=== PATIENT | female | born 1945 | race Caucasian/White ===

== ENCOUNTER 2018-12-05 12:03 | Outpatient (CLI) | payer BC | END 2018-12-05 12:04 | disposition home or self-care (01) | LOC: BICMAMMO 12:03 | PROVIDERS: ATTEND Family Medicine | DX: Z12.31 Encounter for screening mammogram for malignant neoplasm of breast (principal) | CPT/HCPCS: 77063; 77067 ==

== ENCOUNTER 2019-03-22 11:18 | Outpatient (CLI) | payer BC ==
--- NOTE | 2019-03-22 13:45 | RAD ---
RIGHT HIP 2 VIEWS: Date: 03/22/19 HISTORY: Right hip pain. FINDINGS/IMPRESSION: No fracture, dislocation, or bony destruction is identified. POS: [facility]
== END 2019-03-22 11:19 | disposition home or self-care (01) ==
LOC: BICRAD 11:18
PROVIDERS: ATTEND Family Medicine
DX: M25.551 Pain in right hip (principal)
CPT/HCPCS: 88184

== ENCOUNTER 2019-06-12 15:26 | Outpatient (CLI) | payer BC ==
--- NOTE | 2019-06-12 18:32 | MRI ---
PELVIS MRI WITH AND WITHOUT IV CONTRAST: 06/12/19 HISTORY: Right gluteal and right hip pain. FINDINGS: No evidence for abnormal marrow signal involving the hips to suggest avascular necrosis, fracture, or acute stress injury. There is some abnormal linear increased signal at the insertion of the common h amstring tendon evidence for an undersurface and interstitial or delaminating incomplete right common hamstring tendon tear. Left common hamstring tendinopathy. Mild increased signal associated with the right gluteus medius and gluteus minimus tendon insertion regions without evidence for a full thickn ess tear. Abnormal signal associated with the anterior labrum, evidence for a degenerative type blanquita l tear. IMPRESSION: Gluteus minimus and gluteus medius insertional tendinopathy without evidence for an associated comple te or full thickness tear. Undersurface and interstitial and delaminating tear of the right common sung mstring tendon insertion region without full thickness or retracted component. Evidence for degenerat porter type anterior labral tear with some probable small paralabral cysts. No evidence for abnormal marrow signal to suggest avascular necrosis, fracture, or acute stress injur y of either hip or pelvis. POS: OFF
== END 2019-06-12 15:27 | disposition home or self-care (01) ==
LOC: SCSMRI 15:26
PROVIDERS: ATTEND Family Medicine
DX: M25.551 Pain in right hip (principal); M67.959 Unspecified disorder of synovium and tendon, unspecified thigh; S76.011A Strain of muscle, fascia and tendon of right hip, initial encounter

== ENCOUNTER 2019-07-12 12:54 | Outpatient (CLI) | payer BC ==
--- NOTE | 2019-07-12 13:33 | ULT ---
EXAM: Left lower extremity venous duplex: Deep veins evaluated with color Doppler, spectral analysis, and compression. INDICATIONS: Left lower extremity pain and edema. FINDINGS: Deep veins interrogated include common femoral vein, femoral vein, popliteal vein, and post erior tibial vein. These veins show normal compression and blood flow. No evidence of DVT. IMPRESSION: Negative Left venous duplex exam.
== END 2019-07-12 12:55 | disposition home or self-care (01) ==
LOC: BICULT 12:54
PROVIDERS: ATTEND Internal Medicine
DX: Z86.718 Personal history of other venous thrombosis and embolism (principal)

== ENCOUNTER 2023-06-09 10:08 | Outpatient (CLI) | payer BC | END 2023-06-09 10:09 | disposition home or self-care (01) | LOC: BICMAMMO 10:08 | PROVIDERS: ATTEND Obstetrics & Gynecology | DX: N64.4 Mastodynia (principal) | CPT/HCPCS: 77066; G0279 ==